=== PATIENT | male | born 1975 | race Caucasian/White ===

== ENCOUNTER 2023-12-08 19:39 | Inpatient (IN) | payer OTHER, SELFPAY ==
[2023-12-08 15:58] VITALS: BMI 32.2
[2023-12-08 16:00] VITALS: BP 177/102
[2023-12-08 16:24] LABS: % Basophils 0.7 % (0-2); % Eosinophils 0.4 % (0-6); % Immature Granulocytes 2.2 % (0-0.5); % Lymphocytes 7.5 % (20.5-51.1); % Monocytes 10.8 % (1.7-9.3); % Neutrophils 78.4 % (42.2-75.2); Absolute Basophils 0.1 10^3/uL (0-0.2); Absolute Eosinophils 0.1 10^3/uL (0-0.7); Absolute Immature Granulocytes 0.4 10^3/uL (0-0.05); Absolute Lymphocytes 1.4 10^3/uL (1.2-3.4); Absolute Neutrophils 14.3 10^3/uL (1.4-6.5); Hematocrit 32.5 % (39.0-52.0); Hemoglobin 12.2 g/dL (13.0-18.0); Mean Corp Hgb Conc. 37.5 g/dL (33.0-37.0); Mean Corpuscular Volume 85.3 fL (80.0-94.0); Mean Platelet Volume 8.3 fL (7.4-10.4); Nucleated Red Blood Cells % 0 % (-); Platelet Count 435 10^3/uL (130-400); Red Blood Cell Count 3.81 10^6/uL (4.70-6.10); Red Cell Dist. Width 12.4 % (11.5-14.5); White Blood Cell Count 18.3 10^3/uL (4.8-10.8)
[2023-12-08 16:37] LABS: Lactic Acid 0.8 mmol/L (0.7-2.0)
[2023-12-08 16:46] LABS: ALT (SGPT) 19 U/L (0-50); AST (SGOT) 22 U/L (17-59); Albumin 3.5 g/dl (3.5-5.0); Alkaline Phosphatase 87 U/L (38-126); Blood Urea Nitrogen 9 mg/dl (9-20); Calcium 9.1 mg/dl (8.4-10.2); Carbon Dioxide 24 mmol/L (22-30); Chloride 84 mmol/L (98-107); Glucose 122 mg/dl (70-99); Potassium 2.7 mmol/L (3.5-5.1); Sodium 124 mmol/L (135-145); Total Bilirubin 1.3 mg/dl (0.2-1.3); Total Protein 6.8 g/dl (6.3-8.2); eGFR > 60.00
--- NOTE | 2023-12-08 17:05 | ED.GENMED ---
History of Present Illness
General
Chief Complaint: Fall
Source: patient
Exam Limitations: none
Time Seen by Provider: 12/08/23 16:55
Travel History
Have you had any contact with someone who has COVID-19?: No
Do you have any symptoms of coronavirus? Fever > 100 degrees, chills, cough, shortness of breath, sore throat, loss of taste or smell, muscle aches, or headache?: No
History of Present Illness
History of Present Illness:
48-year-old male has had weeks of intermittent fevers. Also developed some back pain weeks ago. Back pain is actually improved. He did have a syncopal episode last week after standing. No prodromal symptoms. Today primarily here for left calf
pain and swelling and evaluation of this recent syncopal event. No abdominal pain no urinary symptoms. No bowel or bladder issues. No lower extremity weakness numbness or tingling
Past History
Past History
ED Past Medical History: None
ED Past Surgical History: Orthopedic
Review of Systems
Review of Systems
All Other Systems: Not applicable
Constitutional: Reports fever
Respiratory: Reports no symptoms
Cardiac: Reports no symptoms
ABD/GI: Denies abdominal pain
Phy Exam
Physical Exam
Physical Exam:
GENERAL: Alert and oriented in no apparent distress
EYE: Orbits normal. Mild ecchymosis under the left periorbital area
NECK: Supple, nontender
ENT: Pharynx without erythema
CARDIAC: Regular rate and rhythm without any obvious murmurs.
LUNGS: Clear breath sounds,normal
ABDOMEN: Soft, without focal tenderness or distention
NEUROLOGICAL: Alert and oriented , grossly non-focal. Good lower extremity strength.
SKIN: Warm and dry, no rash or lesion, no discoloration, skin intact.
MUSCULOSKELETAL: Mild swelling to the left calf. No cord. Minimal tenderness.
PSYCH: Normal and appropriate interaction.
Course
Orders/Labs/Results
Orders:
Orders
12/08/23 16:05
EKG [Electrocardiogram (*1)] Urgent
Reason for Study: Syncope
EKG- Treatment ONCE
12/08/23 16:07
CT Head W/o Iv Contrast Urgent
Comment:
Reason For Exam: fall today, headstrike, mild confusion and N/V
12/08/23 16:08
Legs, left US [US Periph Venous LOWER Ext LT] Urgent
Comment:
Reason For Exam: left calf pain and swelling for past 2 days
12/08/23 16:17
C-Reactive Protein Urgent
Comment: ADD ON
Complete Blood Count/With Diff Urgent
Comprehensive Metabolic Panel Urgent
Erythrocyte Sed Rate Urgent
Comment: ADD ON
Lactate Level [Lactic Acid] Urgent
Magnesium Urgent
Comment: ADD ON
Blood Culture Urgent
KYA Source: Blood/Venous
Specimen Description:
12/08/23 16:58
Cardiac Monitoring- Treatment ONCE
IV Insert/Care/Rem.- Treatment PRN
12/08/23 17:16
Potassium Chloride 10% Elixir [KCl Elixir] 40 meq PO NOW STA
12/08/23 17:17
CT Abd/pel Without Iv Or Oral Urgent
Comment:
Reason For Exam: back pain. fever
12/08/23 17:19
Add On- LAB Urgent
Tests Added?: Magnesium
12/08/23 17:31
CXR2 [CR Chest - 2 Views ] Urgent
Comment:
Reason For Exam: fever cough
12/08/23 17:42
COVID-19 Antigen Urgent
Source: Nasal Swab
Lactic Acid Q4H
Comment: CANCEL 2nd LACTIC ACID IF 1st LACTIC ACID IS LESS THAN 2
Blood Culture Urgent
KYA Source: Blood/Venous
Specimen Description:
Influenza A+B Rapid Molecular Urgent
KYA Source: Nasal Swab
Specimen Description:
12/08/23 17:58
Urinalysis Reflex To Culture Urgent
Date Specimen was Collected: 12/08/23
Time Specimen was Collected: 17:51
Urine Microscopic Reflex Cult Urgent
12/08/23 18:29
Piperacillin/Tazo 4.5 Gram [Zosyn] 4.5 gram in 100 ml IV NOW
12/08/23 18:32
Add On- LAB Urgent
Tests Added?: crp/esr
12/08/23 18:55
PTT Urgent
Comment: Obtain baseline before beginning heparin infusion if not already collected
Heparin 7,700 units IV NOW STA
Nursing to Place Non Medication Order As Directed
Physician Order: PTT 6 hours after initial start of Heparin infusion
12/08/23 19:00
Heparin [id number] Units/250 ml 25,000 units in 250 ml IV PER PROTOCOL
Weight to be used for heparin protocol in kilograms (kg):: 96
Protocol:: DVT/PE
PTT Goal Range to be used:: PTT 73 to 111 seconds
Order type:: Initial
INITIAL Infusion Dose (UNITS/KG/hr) & then follow protocol:: 18 units/kg/hr
Infusion Dose in UNITS/hr & then follow protocol (UNITS/hr):: 1,700
INFUSION RATE in mL/hr & then follow protocol (mL/hr):: 17
For DVT/PE algorithm, re-bolus for low PTT?: Yes
PTT less than or equal to 64 seconds:: Re-bolus 80 units/kg (max 10,000units). Increase by 400 units/hr
(+ 4mL/hr)
PTT 64.1 to 72.9 seconds:: Re-bolus 40 units/kg (max 5,000 units). Increase by 200 units/hr
(+ 2mL/hr)
PTT 73 to 111 seconds:: Target Range. No change in rate.
PTT 111.1 to 130.9 seconds:: Decrease rate by 200 units/hr (- 2 mL/hr)
PTT 131 to 199.9 seconds:: HOLD for 1 hr. Then decrease by 300 units/hr (- 3mL/hr)
PTT greater than or equal to 200 seconds:: HOLD for 2 hrs & Notify Provider. Then decrease by 400 units/hr
(- 4mL/hr)
Lab follow-up:: Each change, PTT q6h until 2 consecutive are therapeutic. Then
PTT daily.
12/08/23 19:01
Admit/Transfer Patient As Directed
Co-Sign Provider:
Level of Care: Inpatient admission
Assign to:: Telemetry
Physician / Group: [email or web address]
Diagnosis: osteomyelitis, dvt
Reason for Telemetry: Arrhythmia
Date to Stop Telemetry: 12/11/23
Time to Stop Telemetry: 11:00
Reason for Hospitalization: osteomyelitis, dvt
Expected length of stay greater than two midnights?: Yes
ELOS- Estimated Length of Stay in days: 2
I certify the patient meets the requirements for IP care: Yes
12/08/23 19:02
Code Status As Directed
Resuscitation Status: Full Code
12/08/23 19:04
Magnesium Sulfate 1 grams 0.9% Sodium Chloride 100 ml [Nss] 100 ml IV NOW
12/08/23 19:05
Urine Osmolality Random [Osmolality, Random Urine] Urgent
Urine Sodium Urgent
12/08/23 19:07
3% Sodium Chloride 250 ml [Sodium Chloride 3%] 250 ml IV ONCE
HydrALAZINE [Apresoline] 5 mg IV Q6HPRN PRN
12/08/23 19:12
Potassium Chloride [KCl] 20 meq 0.9% Sodium Chloride 150 ml [Nss] 150 ml IV NOW
12/08/23 19:13
Vancomycin [Vancocin] 2,000 mg 0.9% Sodium Chloride 500 ml [Nss] 500 ml IV NOW
12/08/23 19:15
Heparin 7,700 units IV PRN PRN
12/08/23 19:16
Heparin 3,800 units IV PRN PRN
12/11/23 11:00
DC Protocol for Telemetry ONCE
Abnormal Lab Results
12/08/23 12/08/23
16:17 17:58
WBC 18.3 H 10^3/uL
(4.8-10.8)
RBC 3.81 L 10^6/uL
(4.70-6.10)
Hgb 12.2 L g/dL
(13.0-18.0)
Hct 32.5 L %
(39.0-52.0)
MCH 32.0 H pg
(27.0-31.0)
MCHC 37.5 H g/dL
(33.0-37.0)
Plt Count 435 H 10^3/uL
(130-400)
Abs Immat Gran (auto) 0.4 H 10^3/uL
(0-0.05)
Absolute Neuts (auto) 14.3 H 10^3/uL
(1.4-6.5)
Absolute Monos (auto) 2.0 H 10^3/uL
(0.1-0.6)
Immature Gran % 2.2 H %
(0-0.5)
Neutrophils % 78.4 H %
(42.2-75.2)
Lymphocytes % 7.5 L %
(20.5-51.1)
Monocytes % 10.8 H %
(1.7-9.3)
ESR 84 H mm/hour
(0-20)
Sodium 124 L mmol/L
(135-145)
Potassium 2.7 L* mmol/L
(3.5-5.1)
Chloride 84 L mmol/L
(98-107)
Creatinine 0.6 L mg/dL
(0.7-1.3)
Glucose 122 H mg/dl
(70-99)
Magnesium 1.5 L mg/dl
(1.6-2.3)
C-Reactive Protein 246.60 H mg/L
(0.0-10.00)
Urine Ketones 3+ A
(Negative)
Ur Occult Blood Reflex 1+ A
(Negative)
Urine RBC 3-6 A /HPF
(0-2)
12/08/23 16:17
12/08/23 16:17
Vital Signs
Initial and Last Documented VS:
Initial Vital Signs
Temp Pulse Resp BP Pulse Ox
99.9 F 98 18 177/102 96
12/08/23 16:00 12/08/23 16:00 12/08/23 16:00 12/08/23 16:00 12/08/23 16:00
Last Documented Vital Signs
Temp Pulse Resp BP Pulse Ox
99.9 F 87 20 146/80 96
12/08/23 16:00 12/08/23 21:45 12/08/23 21:45 12/08/23 21:00 12/08/23 21:45
*Radiology
Radiology exam reviewed: preliminary read by ED provider (Negative x-ray) and radiology read reviewed (Negative head CT. Discitis osteomyelitis to L5-S1.)
*Pulse Oximetry
Patient hypoxic: no
*EKG
Interpreted by ED Provider?: Yes
Interpretation: abnormal
Comparison EKG: no comparison EKG present
Heart Rate: 91
Rate: normal
Rhythm: sinus
Kamas: normal axis
Interval: long QT
QRS Pattern: normal QRS
Ischemia: non-specific ST changes
*Critical Care Note
Total Time (30-74mins, 75-104mins- exclusive of procedures): Not Applicable
Update Note
Update Note:
Patient was not in the room on initial arrival. Apparently was sent to ultrasound.
Discussed with hospitalist. After CT report discussed with neurosurgery. Okay to keep at [facility]. Neurologically intact. MRI can wait till the morning. Family updated. Will heparinize for DVT.
Complicated issues including hypokalemia, hypomagnesemia, hyponatremia. May be related to water intake. Leukocytosis back pain related to discitis/osteomyelitis. Neurologically intact. DVT to the left gastroc. Heparin for ability to turn off.
ED Attending Note
-
Portions of this chart may have been created with voice recognition software.� Occasional wrong word or��sound alike� substitutions may have occurred due to the inherent limitations of voice recognition software.
Discharge Plan
Departure
Patient Disposition: Admit
Date of Disposition: 12/08/23
Time of Disposition: 18:12
Presentation/result/management discussed w/ accepting MD/DO: Hospitalist
Discharge Problem:
Hyponatremia, Hypokalemia, Left lower extremity DVT, Recent syncope, Long QT interval, Leukocytosis/recent fevers
Interventions
Interventions:
*Risk Screen - Suicide Last Done: 12/08/23 16:00
*General Assessment Last Done: 12/08/23 16:00
*Neglect/Abuse Screening Last Done: 12/08/23 16:00
*ED COVID-19 Vaccine History Last Done: 12/08/23 20:46
ED-Musculoskeletal Assessment Last Done: 12/08/23 17:00
ED- Neurological Assessment Last Done: 12/08/23 17:00
ED-Skin Assessment Last Done: 12/08/23 17:00
[2023-12-08] MEDS: KCL ELIXIR 40 MEQ PO (17:36)
[2023-12-08 17:53] LABS: Magnesium 1.5 mg/dl (1.6-2.3)
[2023-12-08 18:03] LABS: Lactic Acid 0.9 mmol/L (0.7-2.0)
[2023-12-08 18:17] LABS: Urine Albumin Negative (Neg - Trace); Urine Bilirubin Negative (Negative); Urine Character Clear (Clear); Urine Color Yellow; Urine Glucose Negative (Negative); Urine Ketone 3+ (Negative); Urine Leukocyte Negative (Negative); Urine Nitrite Negative (Negative); Urine Occult Blood 1+ (Negative); Urine Urobilinogen Negative (Neg - 1+)
[2023-12-08 18:18] LABS: COVID-19 Antigen Negative (Negative)
[2023-12-08 18:28] LABS: Urine Squamous Cell 0-2 /LPF (Few); Urine White Cell None Seen /HPF (0-5)
[2023-12-08] MEDS: ZOSYN 100 IV (18:54)
[2023-12-08 18:56] LABS: Erythrocyte Sed Rate 84 mm/hour (0-20)
[2023-12-08 19:03] VITALS: BP 151/87
--- NOTE | 2023-12-08 19:09 | HPS.HSE ---
Addendum entered and electronically signed by Celi Muñoz MD 12/08/23 22:25:
ID recommended IR consult for aspiration/culture.
Original Note:
Family Physician
-
Family Physician: Latisha Barnhart MD
Chief Complaint
-
left leg pain
History of Present Illness
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 Patient has been having poor decreased intake and fatigue with 15 pound weight loss over the past 1 to 2 months. A week ago
he had an episode of vomiting associated with passing out. He denies any further dizziness or vomiting since then. He denies any diarrhea and slightly constipated with last bowel movement 2 days ago. Denies any abdominal pain.
He developed pain and cramping in his left lower extremity over the past 2 to 3 days. He denies any history of blood clots. He denies any recent surgeries, COVID infection, long trips. Denies any family history of blood clots. Denies any chest
pain or shortness of breath.
Over the past week he has had pain in his lower back. He denies any weakness of his lower extremities or numbness and tingling. He has been having fevers and chills up to 100.4. No history of drugs or IV drug use.
Very rarely drinks alcohol. No smoking history.
No family history.
Medical History
Past Medical History
Past Medical History: Reports None
Past Surgical History: Reports None
Social History
Tobacco: Non-smoker
Alcohol: Occasional
Drug: None
Family History
Family History: Not pertinent
Allergies / Home Medications
Allergies reflects when Allergies were last updated in [facility].
Home Medications with original date entered in [facility]
Allergy/Medication List:
Allergies
Allergy/AdvReac Type Severity Reaction Status Date / Time
No Known Allergies Allergy Unverified 12/08/23 16:04
Home Medications
cholecalciferol (vitamin D3) 25 mcg (1,000 unit) tablet (Vitamin D3) 25 mcg PO DAILY PRN supplement 12/08/23
magnesium 250 mg tablet 250 mg PO DAILY PRN supplement 12/08/23
Review of Systems
-
History Source: Patient
A 12 point ROS was completed and negative except as noted: Yes
Constitutional: Reports No Symptoms
EENT: Reports No Symptoms
Respiratory: Reports No Symptoms
Cardiac: Reports See HPI
Abdomen/GI: Reports See HPI
: Reports No Symptoms
Musculoskeletal: Reports See HPI
Skin: Reports No Symptoms
Neurological: Reports No Symptoms
Endocrine: Reports No Symptoms
Hematologic/Lymphatic: Reports No Symptoms
Psych: Reports No Symptoms
Physical Exam
Vital Signs
Vital Signs
Temp Pulse Resp BP Pulse Ox
99.9 F 90 26 151/87 98
12/08/23 16:00 12/08/23 19:03 12/08/23 19:03 12/08/23 19:03 12/08/23 19:03
Physical Exam
General: Well Developed, Well Nourished and No Apparent Distress
HEENT: NormoCephalic, Moist mucous membranes and Atraumatic
Respiratory: Clear
Cardiac: S1/S2 and Regular Rhythm; No Murmur or Rub
GI: Soft, Non Tender, Non Distended and Normal Bowel Sounds; No Organomegaly
Rectal: Deferred by Provider
Musculoskeletal: No Clubbing, No Cyanosis, No Edema and Other (tender lumbar spine center )
Skin: No Rash
Neuro: Nonfocal/grossly intact
Laboratory Results
-
12/08/23 16:17
12/08/23 16:17
Laboratory Results
Lactic Acid 0.9 mmol/L (0.7-2.0) 12/08/23 17:42
Total Bilirubin 1.3 mg/dl (0.2-1.3) 12/08/23 16:17
AST 22 U/L (17-59) 12/08/23 16:17
ALT 19 U/L (0-50) 12/08/23 16:17
Alkaline Phosphatase 87 U/L (38-126) 12/08/23 16:17
Data Reviewed
-
Lab Data: Labs Reviewed by me
Old Records: Reviewed
Impression/Plan
-
IMPRESSION:
PLAN:
# Sepsis (fever at home, leukocytosis ) secondary to osteomyelitis/discitis of L5-S1 with paravertebral phlegmon/abscess
-No neurological symptoms
-Check blood cultures
-Vancomycin/cefepime
-ER discussed with neurosurgery who states that patient can stay here
-ID consulted
# Unprovoked left lower extremity DVT gastrocnemius veins
-Heparin drip
# Syncopal episode likely due to hypokalemia/prolonged QTc/hyponatremia
# Prolonged QTc secondary to hypokalemia
# Hypomagnesemia
-QTc of 573
-EKG shows repolarization abnormalities, U waves likely due to hypokalemia
-Potassium repletion
-Magnesium repletion
-Recheck EKG in a.m, consider cardiology if no improvement in EKG with correction of electrolytes
#Hyponatremia possibly due to poor p.o. intake
-no significant volume losses/hypotension to warrant IV fluids
-Check urine sodium, osmolality
-Hypertonic saline 20 cc/hr
-recheck sodium after 6 hours
# Hypertensive urgency
-As needed hydralazine
Full code
DVT prophylaxis�heparin drip
Regular diet
[2023-12-08] MEDS: HEPARIN 7700 UNITS IV (19:17)
[2023-12-08] MEDS: HEPARIN 25000 UNITS/250 ML IV (19:23)
[2023-12-08] MEDS: SODIUM CHLORIDE 3% 250 IV (19:40)
[2023-12-08] MEDS: VANCOCIN 540 MG IV (19:49)
[2023-12-08] MEDS: KCL 160 MEQ IV (19:55)
[2023-12-08 20:00] VITALS: BP 154/80
[2023-12-08 21:00] VITALS: BP 146/80
[2023-12-08 22:00] VITALS: BP 142/78
[2023-12-08] MEDS: MAGNESIUM SULFATE 102 GRAMS IV (22:06)
[2023-12-08 22:51] LABS: APTT 69.8 Sec (23.4-35.0)
[2023-12-08 23:00] VITALS: BP 158/82
[2023-12-09] VITALS (8 sets, daily range): BP systolic 119–167; BP diastolic 67–86; BMI 31.3
[2023-12-09] MEDS: MAXIPIME 2000 MG IV ×2 (01:05→14:11)
[2023-12-09] MEDS: TYLENOL 650 MG PO ×3 (01:05→19:56)
[2023-12-09] MEDS: STERILE WATER FOR INJECTION 10 ML IV ×2 (01:06→14:12)
[2023-12-09 01:28] LABS: APTT 48.7 Sec (23.4-35.0)
[2023-12-09 01:30] LABS: Blood Urea Nitrogen 9 mg/dl (9-20); Calcium 8.4 mg/dl (8.4-10.2); Carbon Dioxide 25 mmol/L (22-30); Chloride 89 mmol/L (98-107); Estimated Creatinine Clearance > 125 ml/min; Glucose 114 mg/dl (70-99); Potassium 2.9 mmol/L (3.5-5.1); Sodium 123 mmol/L (135-145); eGFR > 60.00
--- NOTE | 2023-12-09 01:33 | PTCARENOTE ---
Received patient from ED via stretcher. Pt AAOX3. NSR on compliance monitor. Heparin gtt infusing at 17ml/hr. Pt with oral temp: 102.1 Pt medicated with Tylenol PO. See NOV. Call hewitt within reach. Plan of care ongoing.
[2023-12-09] MEDS: HEPARIN 7700 UNITS IV (01:39)
[2023-12-09] MEDS: KCL 40 MEQ PO ×3 (04:18→15:23)
[2023-12-09 04:43] LABS: Urine Sodium 16 mmol/L (30-90)
[2023-12-09 05:45] LABS: Osmolality Urine 199 mOsm/kg (300-900)
[2023-12-09 07:32] LABS: % Basophils 0.6 % (0-2); % Eosinophils 0.6 % (0-6); % Immature Granulocytes 2.1 % (0-0.5); % Lymphocytes 9.1 % (20.5-51.1); % Monocytes 13.5 % (1.7-9.3); % Neutrophils 74.1 % (42.2-75.2); Absolute Basophils 0.1 10^3/uL (0-0.2); Absolute Eosinophils 0.1 10^3/uL (0-0.7); Absolute Immature Granulocytes 0.4 10^3/uL (0-0.05); Absolute Lymphocytes 1.5 10^3/uL (1.2-3.4); Absolute Monocytes 2.3 10^3/uL (0.1-0.6); Absolute Neutrophils 12.6 10^3/uL (1.4-6.5); Hematocrit 32.4 % (39.0-52.0); Hemoglobin 11.8 g/dL (13.0-18.0); Mean Corp Hgb Conc. 36.4 g/dL (33.0-37.0); Mean Corpuscular Hgb 31.8 pg (27.0-31.0); Mean Corpuscular Volume 87.3 fL (80.0-94.0); Mean Platelet Volume 8.8 fL (7.4-10.4); Nucleated Red Blood Cells % 0 % (-); Platelet Count 423 10^3/uL (130-400); Red Blood Cell Count 3.71 10^6/uL (4.70-6.10); Red Cell Dist. Width 12.4 % (11.5-14.5)
[2023-12-09 07:46] LABS: ALT (SGPT) 21 U/L (0-50); AST (SGOT) 27 U/L (17-59); Albumin 2.9 g/dl (3.5-5.0); Alkaline Phosphatase 89 U/L (38-126); Blood Urea Nitrogen 9 mg/dl (9-20); Calcium 8.3 mg/dl (8.4-10.2); Carbon Dioxide 29 mmol/L (22-30); Chloride 89 mmol/L (98-107); Estimated Creatinine Clearance > 125 ml/min; Glucose 128 mg/dl (70-99); Sodium 128 mmol/L (135-145); Total Bilirubin 0.8 mg/dl (0.2-1.3); Total Protein 5.9 g/dl (6.3-8.2); eGFR > 60.00
[2023-12-09 08:32] LABS: APTT 76.3 Sec (23.4-35.0)
[2023-12-09] MEDS: HEPARIN 25000 UNITS/250 ML IV ×2 (08:33→19:56)
--- NOTE | 2023-12-09 09:09 | W.PN.HOSP.TC ---
Today's Communication/Plan
-
see bold
Assessment / Plan
Assessment / Plan
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
ago he had an episode of vomiting associated with passing out.� He denies any further dizziness or vomiting since then.� He denies any diarrhea and slightly constipated with last bowel movement 2 days ago.� Denies any abdominal pain. He developed
pain and cramping in his left lower extremity over the past 2 to 3 days.� He denies any history of blood clots.� He denies any recent surgeries, COVID infection, long trips.� Denies any family history of blood clots.� Denies any chest pain or
shortness of breath. Over the past week he has had pain in his lower back.� He denies any weakness of his lower extremities or numbness and tingling.� He has been having fevers and chills up to 100.4.� No history of drugs or IV drug use. Very rarely
drinks alcohol.� No smoking history. No family history. Patient is a chiropractor.
A/P:
#Sepsis (fever at home, leukocytosis )
#Acute osteomyelitis/discitis of L5-S1 with paravertebral phlegmon/abscess
#Staph aureus bacteremia
Appreciate ID input, continue vancomycin and cefepime, follow-up on cultures
12/08 TTE negative for vegetations
IR consulted for possible aspiration
May need lumbar spine MRI�defer timing to ID
12/07 blood cultures growing Staph aureus, repeat blood cultures until clearance
Trend fever and white count
#Unprovoked left lower extremity DVT gastrocnemius veins
Heparin drip
#Syncopal episode likely due to hypokalemia/prolonged QTc/hyponatremia
#Prolonged QTc secondary to hypokalemia
#Hypomagnesemia
QTc normal today at 383, was 573 upon admission
Potassium still low at 3.0, continue to replete
Magnesium now normal 1.9
#Hyponatremia possibly due to poor p.o. intake
Likely due to excess ADH secretion in the setting of pain
Status post hypertonic saline
Sodium improved at 128, was 123
Continue fluid restriction, trend sodium
# Hypertensive urgency
Likely due to pain
Blood pressure 140/75, improved from 177/102
Continue as needed hydralazine
#Insomnia
Start melatonin and Benadryl at bedtime
DVT prophylaxis�heparin drip
Full code
Total time spent to see the patient on the floor, examine the patient, review data and lab results, discuss treatment plan with patient, nursing staff around 51 minutes.
Physical Exam
General: No acute distress
HEENT: Normocephalic, Atraumatic, EOMI, MMM
Respiratory: Clear to Auscultation bilaterally
Cardiac: Normal S1/S2, Regular Rate and Rhythm
GI: Soft, Nontender, Nondistended, Normal Bowel Sounds
Extremities: No Clubbing, Cyanosis, or Edema
Neuro: Nonfocal/Grossly Intact
Psych: Calm, Cooperative
Derm: No Visible lesions
Anticipated Discharge: > 48 hours
Subjective/Interval History
-
Date of Service: December 09, 2023
Patient denies fever. Reports chills. He reports that his back pain is 6 out of 10 in intensity. No nausea, no vomiting. No chest pain, no shortness of breath.
Objective Data
-
Labs:
Laboratory Results
12/08/23 12/09/23 12/09/23
19:11 01:06 06:36
WBC 17.0 H
Hgb 11.8 L
Hct 32.4 L
Plt Count 423 H
APTT 69.8 H 48.7 H
Sodium 123 L 128 L
Potassium 2.9 L 3.0 L
Chloride 89 L 89 L
Carbon Dioxide 25 29
BUN 9 9
Creatinine 0.6 L 0.6 L
Glucose 114 H 128 H
Calcium 8.4 8.3 L
Total Bilirubin 0.8
AST 27
ALT 21
Alkaline Phosphatase 89
12/09/23
08:01
WBC
Hgb
Hct
Plt Count
APTT 76.3 H
Sodium
Potassium
Chloride
Carbon Dioxide
BUN
Creatinine
Glucose
Calcium
Total Bilirubin
AST
ALT
Alkaline Phosphatase
Vital Signs:
Vital Signs
Temp Pulse Resp BP Pulse Ox
100 F 84 18 142/83 97
12/09/23 07:10 12/09/23 07:10 12/09/23 07:10 12/09/23 07:10 12/09/23 07:10
I&O
12/08/23 12/09/23 12/10/23
06:59 06:59 06:59
Intake Total 766 / 766
Output Total 560 / 560
Balance 206 / 206
--- NOTE | 2023-12-09 09:12 | CON.ID ---
Consultation
-
Date/Time Consultation Requested: 12/09/23 00:37
Date/Time Consultation Performed: 12/09/23 9:13
Requesting Provider: Dr Muñoz
Performing Provider: Dr Mark
Reason for Consultation: Sepsis (fever at home, leukocytosis ) secondary to osteomyelitis/discitis o
Chief Complaint / Past History
Chief Complaint
left leg pain
History of Present Illness
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 Back pain began
about 1 month ago along with subjective fevers/chills, improved with adjustments. No diarrhea or significant constipation, no abdominal pain. Reports a single episode of vomiting associated with syncope with head strike. Then 2-3 days developed
cramping in the L lower extremity. No history of blood clots, surgeries or recent trips. No chest pain or shortness of breath. No history of IVDU. Does not practice acupuncture and no needle sticks. Doesnt have dental insurance and last dental
evaluation was years ago. No gum swelling tenderness or tender teeth. Had a [facility] within the last year [facility] that [facility]. Does have a known foreign body in the L foot
Since arrival here tmax was 102.1 orally, BP stable, wbc initailly 18.3 now 17.0, hgb 11.8, plt 423, L shift present on arrival, eos were present, ESR 84, cr 0.6, t bili 0.8, ast 37, alt 21, alk phos 89, covid ag neg, 12/07 CT a/p without contrast:
suspicious for OM/discitis at the L5-S1 level - possible paravetebral phlegmon or developing abscess, neoplasia on the differential, DVT below the knee on venous US, one of two blood cultures with GPCs in clusters
Past History
Additional Past Medical History:
as per hpi
Past Surgical History: None
Allergy History:
No Known Allergies Allergy (Unverified 12/08/23 16:04)
Medications Reviewed: Yes
Social History
Tobacco: Non-Smoker
Alcohol: Occasional
Drug: None
Family History
Family History: Not Pertinent
Review of Systems
Review of Systems
General: Negative Fever or Chills
All systems: All other systems were reviewed and were negative
Vital Signs
Temp Pulse Resp BP Pulse Ox
100 F 84 18 142/83 97
12/09/23 07:10 12/09/23 07:10 12/09/23 07:10 12/09/23 07:10 12/09/23 07:10
Physical Exam
Physical Exam
Constitutional: No Acute Distress
Cardiovascular: Regular Rate and S1/S2; Negative Murmur or Rub
Pulmonary: Clear and Symmetric; Negative Wheezes, Rales or Rhonchi
Gastrointestinal: Soft, Non Tender, Non Distended and Normal Bowel Sounds
Extremities: Calf Swelling (minimal); Negative Splinter Hemorrhage (no osler or janway lesions)
Musculoskeletal: Spinal Tenderness (lumbar spine only)
Skin: Warm and Dry; Negative Rash or Jaundice
Neurological: Awake and Alert
Lab / Diagnostic Study Results
12/09/23 06:36
12/09/23 06:36
Abs Immat Gran (auto) 0.4 10^3/uL (0-0.05) H 12/09/23 06:36
Absolute Neuts (auto) 12.6 10^3/uL (1.4-6.5) H 12/09/23 06:36
Absolute Lymphs (auto) 1.5 10^3/uL (1.2-3.4) 12/09/23 06:36
Absolute Monos (auto) 2.3 10^3/uL (0.1-0.6) H 12/09/23 06:36
Absolute Basos (auto) 0.1 10^3/uL (0-0.2) 12/09/23 06:36
Immature Gran % 2.1 % (0-0.5) H 12/09/23 06:36
Neutrophils % 74.1 % (42.2-75.2) 12/09/23 06:36
Lymphocytes % 9.1 % (20.5-51.1) L 12/09/23 06:36
Monocytes % 13.5 % (1.7-9.3) H 12/09/23 06:36
Eosinophils % 0.6 % (0-6) 12/09/23 06:36
Basophils % 0.6 % (0-2) 12/09/23 06:36
ESR 84 mm/hour (0-20) H 12/08/23 16:17
Lactic Acid Cancelled 12/08/23 21:00
C-Reactive Protein 246.60 mg/L (0.0-10.00) H 12/08/23 16:17
Ur Squamous Epith Cells 0-2 /LPF (Few) 12/08/23 17:58
Microbiology Results
Micro:
12/08/23 16:17 Blood Culture - Preliminary
Blood/Venous Positive culture in progress
Gram Stain - Final
12/08/23 17:42 Influenza Types A & B (TARIQ) - Final
Nasal Swab Negative for Influenza A & B, NAAT
Negative results must be combined with clinical observations
and patient history.
Nucleic Acid Amplification test (NAAT)performed on the
[employer] NOW platform.
12/08/23 17:42 Blood Culture - Pending
Blood/Venous
Assessment / Plan
Probable L5-S1 Discitis
Gram positive bacteremia
- gpcs in clusters in 1 of two sets of blood cultures
- repeat blood cultures x2
- IR consulted for aspiration/culture of the affected area
- panellipse
- echo
- eventual MRI lumbar spine - would wait a few days before obtaining
- Xray of the L foot to assess reported foreign body (asymptomatic) may need MRI
- continue vanc/cefepime
- follow clinically
Hyperglycemia
- check A1c
Care Review
Plan reviewed with: Physician (Dr Simms, Dr Porter - MRI)
--- NOTE | 2023-12-09 09:44 | PHA.VAN.IN ---
Assessment
- Assessment
Renal Function: Appears similar to baseline
Concomitant Antimicrobials: cefepime
AUC Dosing Plan
- Dosing Variables
Dosing Weight (kg): 93
Dosing CrCl (ml/min): 125
Vd coefficient (L/kg): 0.7
- Empiric Dosing
Initial / Loading Dose: 2000mg - 12/07 19:49
Maintenance Regimen: Vanc 1500mg Q12H starting at 1800 - give 1g now to maintain levels
Estimated AUC (mcg*h/mL): 461
Estimated Peak (mcg*h/mL): 31.7
Estimated Trough (mcg/ml): 10.2
Estimated Half Life (H): 6.4
- Monitoring
No levels ordered at this time: consider levels in next few days
Pharmacokinetics Vancomycin I
- -
Patient Age: 48
Patient Sex: Male
Vancomycin Day #: 1
Indication: Bone And Joint
Requesting Provider: Dr. Muñoz
Pertinent Antimicrobial Allergies:
NKDA
Height / Weight:
Height 5 ft 8 in
Actual Weight 93.242 kg
Pertinent Past Medical History: BMI ~31
- Vital Signs / Lab Results
Temp Pulse Resp BP Pulse Ox
100 F 84 18 142/83 97
12/09/23 07:10 12/09/23 07:10 12/09/23 07:10 12/09/23 07:10 12/09/23 07:10
Lab Results - Hematology
12/08/23 12/09/23
16:17 06:36
WBC 18.3 H 17.0 H
Lab Results - Chemistry
12/08/23 12/09/23 12/09/23
16:17 01:06 06:36
BUN 9 9 9
Creatinine 0.6 L 0.6 L 0.6 L
Estimated Creat Clear > 125 > 125
Albumin 3.5 2.9 L
03/12/24 03/12/24 03/12/24
16:17 17:42 21:00
Lactic Acid 0.8 0.9 Cancelled
Lab Results - Urine
12/08/23
17:58
Urine Nitrite (Reflex) Negative
Leukocyte Esterase Rfl Negative
Urine WBC (Reflex) None seen
Ur Squamous Epith Cells 0-2
Microbiology Results
12/08/23 16:17 Blood Culture - Preliminary
Blood/Venous Positive culture in progress
Gram Stain - Final
12/08/23 17:42 Influenza Types A & B (TARIQ) - Final
Nasal Swab Negative for Influenza A & B, NAAT
Negative results must be combined with clinical observations
and patient history.
Nucleic Acid Amplification test (NAAT)performed on the
[employer] platform.
[2023-12-09 09:47] LABS: Magnesium 1.9 mg/dl (1.6-2.3)
[2023-12-09] MEDS: VANCOCIN 200 IV (10:25)
[2023-12-09] MEDS: VISBIOME 2 CAP PO (10:31)
[2023-12-09] MEDS: ROXICODONE 10 MG PO (12:57)
--- NOTE | 2023-12-09 13:42 | PTCARENOTE ---
Patient maintained on heparin gtt for left lower leg DVT. PTT this morning was within therapeutic range so heparin without changes at 2100 units/hour. PTT redrawn at 1330 - pending results. Potassium 3.0 today. Given 40 meq Kdur and will receive
another dose this evening. Patient with preliminary positive blood cultures. Additional set of blood cultures drawn. aware. ID following patient. Patient went for orthopantogram, left leg xray and echocardiogram today. IV antibiotics as ordered.
Reviewed plan of care with patient and he verbalizes understanding plan at this time.
--- NOTE | 2023-12-09 14:18 | CM ---
Alert awake oriented patient who lives with his Elayne in one story home with 1 step to enter and bed and bathroom on first floor. He is independent in driving and in all activities of daily living.He uses a CPAP from [employer].He will probably
need home IV anabiotic infusion. Pt agreed to use [facility] if needed.
No VN/SNF history
Pharmacy [facility]
PCP DR Barnhart
PLAN Home probably need home IV anabiotic infusion
[2023-12-09 14:43] LABS: APTT 65.1 Sec (23.4-35.0)
[2023-12-09] MEDS: HEPARIN 3800 UNITS IV (15:22)
[2023-12-09] MEDS: VANCOCIN 300 ML IV (17:29)
[2023-12-09] MEDS: VANCOCIN 300 MG IV (17:29)
--- NOTE | 2023-12-09 17:59 | CON.NS ---
Consultation
-
Date/Time Consultation Performed: 18:00,
Performing Provider: Kerri
Chief Complaint
History of Present Illness
This is a 48-year-old gentleman that presented with feeling of malaise for the past month. He reportedly had decreased intake, and fatigue, with 15 pound weight loss. He had an episode of vomiting, 1 week prior, with syncope. He also developed
pain and cramping in his left lower extremity over the last several days, prompting him to present. He also reported pain that started in his back approximately 1 week prior. He denies any numbness, tingling, weakness of the lower extremities. He
denies any bowel or bladder changes. He also had fevers and chills. He had a CT of the abdomen/pelvis which demonstrated findings suspicious for osteomyelitis/discitis at L5-S1 with a prevertebral soft tissue lesion. Soft tissue lesion was
suspicious for possible paravertebral phlegmon or developing abscess, versus neoplasm.
Patient was found to be hyponatremic, hypokalemic. He also was found to have a left lower extremity DVT, for which she has been started on a heparin drip. Blood cultures from 12/07 did demonstrate Staph aureus. WADE WADE was negative for
vegetations. He is being treated for sepsis. Neurosurgery asked to consult regarding lumbosacral findings. Patient seen and examined. He reports that his back pain actually has improved over the last several days. He denies any numbness,
tingling, weakness. Denies any urinary changes. He denies any recent major infections. Had a colonoscopy 1 year prior.
Review of Systems
-
A 10 point review of systems was performed, which includes constitutional, ENT, cardiovascular, respiratory, GI, , hematologic, endocrinologic, neurologic, musculoskeletal, and was negative, except for stated in HPI.
Medication and Allergies
Home Medications
Home Medications
Medication Instructions Recorded
cholecalciferol (vitamin D3) 25 25 mcg PO DAILY PRN supplement 12/08/23
mcg (1,000 unit) tablet (Vitamin
D3)
magnesium 250 mg tablet 250 mg PO DAILY PRN supplement 12/08/23
Allergies
Allergies
Allergy/AdvReac Type Severity Reaction Status Date / Time
No Known Allergies Allergy Unverified 12/08/23 16:04
Physical Exam
-
Exam:
Awake, alert, no apparent distress.
Cranial nerves II through XII are grossly intact.
Motor: 5/5 strength in upper extremities, lower extremities.
Sensation intact to light touch bilaterally in upper and lower extremities
Head is normocephalic atraumatic.
Neck supple
Breathing nonlabored
Abdomen is soft
Regular rhythm, pulses palpable
Extremities are warm, without any edema.
Exams:� CT Abd/pel Without Iv Or Oral
PROCEDURE: CT Abdomen and Pelvis without IV Contrast
CLINICAL INDICATION: Back pain. Fever.
TECHNIQUE: A CT examination of the abdomen and pelvis was performed without intravenous contrast. Oral contrast was not administered. Coronal and sagittal reformatted images were obtained. Automatic exposure control radiation dose reduction
technology was utilized.
COMPARISON: None.
FINDINGS:
CHEST: The lung bases are clear.
ABDOMEN:
The unenhanced liver, gallbladder, bile ducts, pancreas, spleen, bilateral adrenal glands, and kidneys are unremarkable. No hydronephrosis or nephrolithiasis.
The abdominal aorta is normal in caliber.
Normal appendix. Colonic diverticulosis, without evidence for acute diverticulitis. No extraluminal free air or ascites.
PELVIS: The urinary bladder and prostate gland are unremarkable. Small fat-containing left inguinal hernia.
SKELETON: Osseous destructive changes at the L5-S1 level involving the inferior endplate of L5 and the superior endplate of S1, highly suspicious for discitis-osteomyelitis. Prevertebral soft tissue anterior to the L5-S1 level measuring
approximately 4.6 x 8.0 x 6.0 cm. Mild adjacent inflammatory fat stranding in the pelvis.
IMPRESSION:
CT findings are highly suspicious for osteomyelitis-discitis at the L5-S1 level. Prevertebral soft tissue anterior to L5-S1 may represent paravertebral phlegmon or a developing abscess. Neoplastic soft tissue would be the primary differential
consideration.
Electronically signed by Marilin Plascencia 12/08/2023 5:59 PM
Assessment / Plan
-
48-year-old gentleman who presents with probable Staph aureus bacteremia, L5-S1 osseous destructive changes, with a prevertebral/presacral soft tissue lesion, suspicious for possible neoplasm versus abscess/phlegmon.
Recommend MRI of the lumbar spine with and without contrast when patient is stable and able to obtain scan, to better delineate lesion, and extent of pathology.
Patient is already been initiated on antibiotics. Interventional radiology has been consulted for aspiration/culture of the prevertebral/presacral area.
Given intact neurological examination, would hold off on any invasive neurosurgical/spinal intervention.
Will follow.
[2023-12-09 20:08] LABS: APTT 80.3 Sec (23.4-35.0)
[2023-12-09] MEDS: ROXICODONE 5 MG PO (20:41)
[2023-12-09] MEDS: MELATONIN 5 MG PO (21:01)
[2023-12-09] MEDS: BENADRYL 50 MG PO (21:01)
[2023-12-10] MEDS: STERILE WATER FOR INJECTION 10 ML IV (01:21)
[2023-12-10] MEDS: MAXIPIME 2000 MG IV (01:21)
[2023-12-10] MEDS: ROXICODONE 5 MG PO (01:21)
[2023-12-10 02:16] LABS: Hemoglobin 10.3 g/dL (13.0-18.0); Mean Corp Hgb Conc. 36.8 g/dL (33.0-37.0); Mean Corpuscular Hgb 31.5 pg (27.0-31.0); Mean Corpuscular Volume 85.6 fL (80.0-94.0); Mean Platelet Volume 8.4 fL (7.4-10.4); Platelet Count 388 10^3/uL (130-400); Red Blood Cell Count 3.27 10^6/uL (4.70-6.10); Red Cell Dist. Width 12.7 % (11.5-14.5); White Blood Cell Count 19.7 10^3/uL (4.8-10.8)
[2023-12-10 02:29] LABS: APTT 83.1 Sec (23.4-35.0)
[2023-12-10 02:39] LABS: Blood Urea Nitrogen 12 mg/dl (9-20); Calcium 7.9 mg/dl (8.4-10.2); Carbon Dioxide 27 mmol/L (22-30); Chloride 92 mmol/L (98-107); Estimated Creatinine Clearance > 125 ml/min; Glucose 132 mg/dl (70-99); Magnesium 1.8 mg/dl (1.6-2.3); Potassium 3.2 mmol/L (3.5-5.1); Sodium 124 mmol/L (135-145); eGFR > 60.00
[2023-12-10 03:37] VITALS: BP 131/81
[2023-12-10] MEDS: VANCOCIN 300 MG IV ×2 (05:43→17:42)
[2023-12-10] MEDS: VANCOCIN 300 ML IV ×2 (05:43→17:42)
[2023-12-10] MEDS: HEPARIN 25000 UNITS/250 ML IV ×2 (05:54→18:00)
[2023-12-10 06:18] LABS: APTT 73.6 Sec (23.4-35.0)
[2023-12-10 07:37] VITALS: BP 145/79
--- NOTE | 2023-12-10 08:22 | PHA.VAN.FU ---
Vancomycin Assessment / Plan
- Assessment
Renal Function: Stable
WBC's are: Trending Up
In the past 24 hrs, patient has been: Febrile (Tmax 102.5F - 12/08 19:50)
Concomitant Antimicrobials: cefepime
- Dosing Plan
Continue: Vanc 1500mg Q12H
- Monitoring Plan
No level(s) ordered at this time: consider levels following PM dose tomorrow to ensure at steady state
- Follow Up
Pharmacy will continue to follow.
Vancomycin Follow UP
- -
Patient Age: 48
Patient Sex: Male
Vancomycin Day #: 2
Indication: Bone And Joint
Requesting Provider: Dr. Muñoz / Deedee
Pertinent Antimicrobial Allergies:
NKDA
Height / Weight:
Height 5 ft 8 in
Actual Weight 93.242 kg
Pertinent Past Medical History: BMI ~31
- Vital Signs / Lab Results
Temp Pulse Resp BP Pulse Ox
99.4 F 83 20 131/81 96
12/10/23 03:37 12/10/23 03:37 12/10/23 03:37 12/10/23 03:37 12/10/23 03:37
Lab Results - Hematology
12/08/23 12/09/23 12/10/23
16:17 06:36 02:11
WBC 18.3 H 17.0 H 19.7 H
Lab Results - Chemistry
12/08/23 12/09/23 12/09/23
16:17 01:06 06:36
BUN 9 9 9
Creatinine 0.6 L 0.6 L 0.6 L
Estimated Creat Clear > 125 > 125
Albumin 3.5 2.9 L
12/10/23
02:11
BUN 12
Creatinine 0.6 L
Estimated Creat Clear > 125
Albumin
12/08/23 12/08/23 12/08/23
16:17 17:42 21:00
Lactic Acid 0.8 0.9 Cancelled
Microbiology Results
12/08/23 17:42 Blood Culture - Preliminary
Blood/Venous Positive culture in progress
Gram Stain - Preliminary
12/08/23 16:17 Blood Culture - Preliminary
Blood/Venous Staphylococcus aureus
Gram Stain - Final
12/08/23 17:42 Influenza Types A & B (TARIQ) - Final
Nasal Swab Negative for Influenza A & B, NAAT
Negative results must be combined with clinical observations
and patient history.
Nucleic Acid Amplification test (NAAT)performed on the
[employer] platform.
[2023-12-10 08:54] LABS: Glycohemoglobin (HgbA1c) 6.5 % (4.0-5.6)
[2023-12-10] MEDS: VISBIOME 2 CAP PO (09:05)
--- NOTE | 2023-12-10 09:11 | W.PN.HOSP.TC ---
Addendum entered and electronically signed by Oleg Simms MD 12/11/23 13:49:
Yes, Sepsis is related to/associated with/due to s. aureus.
Original Note:
Today's Communication/Plan
-
see bold
Assessment / Plan
Assessment / Plan
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
ago he had an episode of vomiting associated with passing out.� He denies any further dizziness or vomiting since then.� He denies any diarrhea and slightly constipated with last bowel movement 2 days ago.� Denies any abdominal pain. He developed
pain and cramping in his left lower extremity over the past 2 to 3 days.� He denies any history of blood clots.� He denies any recent surgeries, COVID infection, long trips.� Denies any family history of blood clots.� Denies any chest pain or
shortness of breath. Over the past week he has had pain in his lower back.� He denies any weakness of his lower extremities or numbness and tingling.� He has been having fevers and chills up to 100.4.� No history of drugs or IV drug use. Very rarely
drinks alcohol.� No smoking history. No family history. Patient is a chiropractor.
A/P:
#Sepsis (fever at home, leukocytosis )
#Acute osteomyelitis/discitis of L5-S1 with paravertebral phlegmon/abscess
#Persistent MSSA bacteremia
Appreciate ID input, continue ancef, follow-up on cultures
12/08 TTE negative for vegetations
Fever resolved, last fever 12/08
MRI L-spine reviewed, shows 2.8 cm AP by 2.6 cm transverse by 2.8 cm craniocaudal spinal abscess
12/07 and 12/08 blood cultures w/ MSSA
ID recommending neurosurgical intervention, neurosurgery on board
#Unprovoked left lower extremity DVT gastrocnemius veins
Heparin drip
#Syncopal episode likely due to hypokalemia/prolonged QTc/hyponatremia
#Prolonged QTc secondary to hypokalemia
#Hypomagnesemia
QTc normal today at 383, was 573 upon admission
Potassium improved at 3.2, continue to replete
Magnesium now normal 1.9
#Hyponatremia possibly due to poor p.o. intake
Likely due to excess ADH secretion in the setting of pain
Status post hypertonic saline
Sodium down at 124, was 128, was 123
Check TSH, a.m. cortisol, urine studies, serum osmolality
Consult nephrology for poss samsca, continue fluid restriction, trend sodium
#Glucose intolerance/borderline type 2 diabetes
Hemoglobin A1c 6.5, recommend low-carb diet, and weight loss upon discharge
# Hypertensive urgency
Likely due to pain
Blood pressure 141/85, improved from 177/102
Continue as needed hydralazine
#Insomnia
Started melatonin and Benadryl at bedtime
DVT prophylaxis�heparin drip
Full code
Total time spent to see the patient on the floor, examine the patient, review data and lab results, discuss treatment plan with patient, nursing staff around 52 minutes.
Physical Exam
General: Obese, no acute distress
HEENT: Normocephalic, Atraumatic, EOMI, MMM
Respiratory: Clear to Auscultation bilaterally
Cardiac: Normal S1/S2, Regular Rate and Rhythm
GI: Soft, Nontender, Nondistended, Normal Bowel Sounds
Extremities: No Clubbing, Cyanosis, or Edema
Neuro: Nonfocal/Grossly Intact
Psych: Calm, Cooperative
Derm: No Visible lesions
Anticipated Discharge: > 48 hours
Subjective/Interval History
-
Date of Service: December 10, 2023
Patient continues to have severe back pain. No fever. No nausea, no vomiting. No chest pain.
Objective Data
-
Labs:
Laboratory Results
12/10/23 12/10/23
02:11 05:53
WBC 19.7 H
Hgb 10.3 L
Hct 28.0 L
Plt Count 388
APTT 83.1 H 73.6 H
Sodium 124 L
Potassium 3.2 L
Chloride 92 L
Carbon Dioxide 27
BUN 12
Creatinine 0.6 L
Glucose 132 H
Calcium 7.9 L
Vital Signs:
Vital Signs
Temp Pulse Resp BP Pulse Ox
100.2 F 86 20 145/79 94
12/10/23 07:37 12/10/23 07:37 12/10/23 07:37 12/10/23 07:37 12/10/23 07:37
I&O
12/09/23 12/10/23 12/11/23
06:59 06:59 06:59
Intake Total 766 / 766 840 / 840
Output Total 560 / 560
Balance 206 / 206 840 / 840
[2023-12-10 10:13] LABS: Osmolality Serum 260 mOsm/kg (275-300)
[2023-12-10 10:45] LABS: TSH 5.03 uIU/ml (0.47-4.68)
[2023-12-10] MEDS: KCL 40 MEQ PO ×2 (10:58→15:40)
[2023-12-10 11:10] LABS: Cortisol, Random 16.3 ug/dl
[2023-12-10 11:35] VITALS: BP 141/85
[2023-12-10 11:48] LABS: Osmolality Urine 544 mOsm/kg (300-900)
[2023-12-10 12:09] LABS: Urine Sodium 71 mmol/L (30-90)
[2023-12-10] MEDS: MIRALAX 17 GRAMS PO ×2 (12:30→20:37)
--- NOTE | 2023-12-10 13:04 | W.CON.NEPH ---
Consultation
-
Date/Time Consultation Requested: 12/10/23
Date/Time Consultation Performed: 12/10/23
Requesting Provider: Bernarda Simms
Performing Provider: Liyah Bar
Reason for Consultation: hyponatremia
Medical History
-
Chief Complaint: hyponatremia
History of Present Illness:
Mr. Benoit is a 48YOM with no significan medical hsitory who presents to the hospital for a month of feeling unwell. He states that he started a keto diet a month ago and has lost about 15 lbs. A week ago, he had an episode of vomitting and then
passed out afterwards. He started drinking almost 180 oz of water daily after his episode of passing out. Denies dizziness, nausea, vomitting diarrhea since then. He denies abd pain. He endorses some cramping over his lower extremities over the past
few days, resolved after heparin initiation. Endorses significant back pain.
Nephrology is consulted in the setting of his hyponatremia. He was initially given HTS with improvement, today back down.
Past Medical History
Past Medical History: None
Past Surgical History: None
Social History
Tobacco: Non-Smoker
Alcohol: None
Drug: None
Employment: Employed
Family History
Family History: Not Pertinent
Allergies / Home Medications
Allergy/AdvReac Type Severity Reaction Status Date / Time
No Known Allergies Allergy Unverified 12/08/23 16:04
Medication Instructions Recorded Confirmed Type
cholecalciferol (vitamin D3) 25 25 mcg PO DAILY PRN supplement 12/08/23 12/08/23 History
mcg (1,000 unit) tablet (Vitamin
D3)
magnesium 250 mg tablet 250 mg PO DAILY PRN supplement 12/08/23 12/08/23 History
Review of Systems
-
History Source: Patient
All other systems: Negative unless noted
Constitutional: Weight Loss and Fatigue
Abdomen/GI: Abdominal Pain
Skin: No Symptoms
Neurological: Dizzy and Weakness
Physical Exam
Vital Signs
Vital Signs
Temp Pulse Resp BP Pulse Ox
99.8 F 85 16 141/85 93
12/10/23 11:35 12/10/23 11:35 12/10/23 11:35 12/10/23 11:35 12/10/23 11:35
Lab Results
WBC 19.7 10^3/uL (4.8-10.8) H 12/10/23 02:11
RBC 3.27 10^6/uL (4.70-6.10) L 12/10/23 02:11
Hgb 10.3 g/dL (13.0-18.0) L 12/10/23 02:11
Hct 28.0 % (39.0-52.0) L 12/10/23 02:11
Plt Count 388 10^3/uL (130-400) 12/10/23 02:11
Sodium 124 mmol/L (135-145) L 12/10/23 02:11
Potassium 3.2 mmol/L (3.5-5.1) L 12/10/23 02:11
Chloride 92 mmol/L (98-107) L 12/10/23 02:11
Carbon Dioxide 27 mmol/L (22-30) 12/10/23 02:11
BUN 12 mg/dl (9-20) 12/10/23 02:11
Creatinine 0.6 mg/dL (0.7-1.3) L 12/10/23 02:11
eGFR > 60.00 12/10/23 02:11
Glucose 132 mg/dl (70-99) H 12/10/23 02:11
Calcium 7.9 mg/dl (8.4-10.2) L 12/10/23 02:11
Phosphorus 3.0 mg/dl (2.5-4.5) 12/10/23 02:11
Albumin 2.9 g/dl (3.5-5.0) L 12/09/23 06:36
Physical Exam
General: AOx3
HEENT: PERRL, EOMI, Anicteric, Conjunctivae Clear, Ear/Nose Intact and Hearing Normal
Respiratory: Clear
Cardiac: S1/S2, Regular Rate/Rhythm and No Edema
Breast: N/A
Abdomen: Soft, Nontender and Other (distended)
Rectal: Deferred by Provider
Musculoskeletal: No Edema
Skin: No Rash, Warm and Dry
Neuro: Nonfocal/Grossly Intact
Psych: Mood/afflect pleasant, Insight/judgement good and Appropriate
Assessment/Plan
-
Assessment:
hyponatremia
DVT
osteomyelitis
staph aureus bacteremia
hypertensive urgency
insomnia
Plan:
Na 124, Uosm 199, Neli 16
likely multifactorial - SIADH + hypovolemia + polydipsia
will restart HTS at 25cc/hr
goal Na of 130+ by tomorrow AM
encouraged patient to FR 48oz while in hospital. can liberalize once Na improved
Data Reviewed
-
Radiology: Report Reviewed by me
MRI: Report Reviewed by me
Labs: Labs Reviewed by me, Discussed with Physician and Discussed with Patient
Old Records: Reviewed
[2023-12-10] MEDS: ROXICODONE 10 MG PO ×2 (13:40→21:03)
[2023-12-10] MEDS: SODIUM CHLORIDE 3% 250 IV (13:41)
--- NOTE | 2023-12-10 13:43 | W.PN.ID1 ---
Date of Service
Date of Service: December 10, 2023
Today's Communication
vanc and cefazolin
message left for vascular surgery - suspect this patient might benefit from transfer to a tertiary care center and would be happy to facilitate if needed
Assessment / Plan
L5-S1 Osteomyelitis/Discitis
2 large paraspinal abscesses likely due to s aureus
Persistent S aureus Bacteremia
- repeat blood cultures one set daily until persistently clear in two sets
- panellipse - possible tavia but no initial source of bacteremia
- echo - TTE: no vegetations
- MRI lumbar spine with two paraspinal abscesses including a large, anterior collection not approachable by neurosurgery, IR or gen surg at this institution (discussed with Dr Manning, Dr Porter and Dr Browne). Message left for vascular surgery to
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 I am concerned that both of these collections are larger than 2 cm in all three dimensions and I would recommend I&D for source control; I'm concerned that event long courses of IV antibiotics may
not be sufficient to prevent progression of abscesses of this size
- Xray of the L foot - no radiopaque foreign body
- continue vanc, switch cefepime to cefazolin pending sensitivities
- follow clinically
DM2
- new diagnosis
- management may improve outcomes of infection in the long run, would consider eventual trial of oral hypoglycemics
Chief Complaint
-: Bacteremia
Subjective / Review of Systems
ongoing fevers
bp stable
leukocytosis ongoing, thrombocytosis resolved
a1c 6.5
hyponatremia persists
there are paraspinal abscesses on the MRI - 5 x 5 x4 cm; second abscess 3x3x3 cm
12/08 echo: no vegetations
no changes in vision
Discussed frankly with patient, brought computer into the room and we reviewed the images together. He would like a disc for his family and I asked our community outreach specialist to bring him the record release form
Vital Signs / Physical Exam
Vital Signs
Vital Signs
Temp Pulse Resp BP Pulse Ox
99.8 F 85 16 141/85 93
12/10/23 11:35 12/10/23 11:35 12/10/23 11:35 12/10/23 11:35 12/10/23 11:35
Physical Exam
Constitutional: No Acute Distress
Cardiovascular: Regular Rate and S1/S2; Negative Murmur or Rub
Pulmonary: Clear and Symmetric; Negative Wheezes or Rales
Gastrointestinal: Soft, Non Tender, Non Distended and Normal Bowel Sounds
Skin: Warm and Dry; Negative Rash or Jaundice
Lines: PIV (nontender)
Objective Data
Lab Data
Lab Results
12/10/23 02:11
12/10/23 02:11
ESR 84 mm/hour (0-20) H 12/08/23 16:17
APTT 73.6 Sec (23.4-35.0) H 12/10/23 05:53
Estimated Creat Clear > 125 ml/min 12/10/23 02:11
Lactic Acid Cancelled 12/08/23 21:00
Total Bilirubin 0.8 mg/dl (0.2-1.3) 12/09/23 06:36
AST 27 U/L (17-59) 12/09/23 06:36
ALT 21 U/L (0-50) 12/09/23 06:36
Alkaline Phosphatase 89 U/L (38-126) 12/09/23 06:36
C-Reactive Protein 246.60 mg/L (0.0-10.00) H 12/08/23 16:17
Most recent labs reviewed.
Micro Results:
12/09/23 13:23 Blood Culture - Preliminary
Blood/Venous Positive culture in progress
Gram Stain - Preliminary
12/09/23 12:20 Blood Culture - Preliminary
Blood/Venous Positive culture in progress
Gram Stain - Preliminary
12/08/23 17:42 Blood Culture - Preliminary
Blood/Venous Staphylococcus aureus
Gram Stain - Final
12/08/23 16:17 Blood Culture - Preliminary
Blood/Venous Staphylococcus aureus
Gram Stain - Final
12/08/23 17:42 Influenza Types A & B (TARIQ) - Final
Nasal Swab Negative for Influenza A & B, NAAT
Negative results must be combined with clinical observations
and patient history.
Nucleic Acid Amplification test (NAAT)performed on the
[employer] platform.
[2023-12-10 15:10] VITALS: BP 148/89
[2023-12-10] MEDS: ANCEF 10 IV ×2 (15:10→21:05)
[2023-12-10] MEDS: TYLENOL 650 MG PO (15:37)
[2023-12-10 16:59] LABS: APTT 55.6 Sec (23.4-35.0)
[2023-12-10] MEDS: HEPARIN 7700 UNITS IV (17:32)
[2023-12-10 19:39] VITALS: BP 114/77
[2023-12-10] MEDS: BENADRYL 50 MG PO (21:03)
[2023-12-10] MEDS: MELATONIN 5 MG PO (21:03)
[2023-12-10 23:24] LABS: APTT 133.2 Sec (23.4-35.0)
[2023-12-10 23:31] VITALS: BP 117/75
[2023-12-11 03:34] VITALS: BP 129/82
[2023-12-11] MEDS: HEPARIN 25000 UNITS/250 ML IV ×2 (05:07→14:02)
[2023-12-11] MEDS: ANCEF 10 IV ×2 (05:11→14:26)
[2023-12-11] MEDS: VANCOCIN 300 ML IV (05:12)
[2023-12-11] MEDS: VANCOCIN 300 MG IV (05:12)
[2023-12-11] MEDS: TYLENOL 650 MG PO ×2 (05:20→15:17)
[2023-12-11] MEDS: MIRALAX 17 GRAMS PO (05:20)
[2023-12-11 07:24] LABS: Hematocrit 28.3 % (39.0-52.0); Hemoglobin 9.9 g/dL (13.0-18.0); Mean Corpuscular Hgb 31.1 pg (27.0-31.0); Mean Platelet Volume 8.7 fL (7.4-10.4); Platelet Count 442 10^3/uL (130-400); Red Blood Cell Count 3.18 10^6/uL (4.70-6.10); Red Cell Dist. Width 12.9 % (11.5-14.5); White Blood Cell Count 15.7 10^3/uL (4.8-10.8)
[2023-12-11 07:35] VITALS: BP 124/80
[2023-12-11 07:45] LABS: Blood Urea Nitrogen 14 mg/dl (9-20); Calcium 8.6 mg/dl (8.4-10.2); Carbon Dioxide 30 mmol/L (22-30); Chloride 93 mmol/L (98-107); Estimated Creatinine Clearance > 125 ml/min; Glucose 154 mg/dl (70-99); Potassium 3.5 mmol/L (3.5-5.1); Sodium 131 mmol/L (135-145); eGFR > 60.00
[2023-12-11 08:26] LABS: APTT 59.3 Sec (23.4-35.0)
--- NOTE | 2023-12-11 08:44 | W.PN.HOSP.TC ---
Addendum entered and electronically signed by Oleg Simms MD 12/11/23 13:49:
Yes, Sepsis is related to/associated with/due to s. aureus.
Original Note:
Today's Communication/Plan
-
Transfer to [facility] when bed available, accepting doctor is Dr. Wayne Cavazos
Assessment / Plan
Assessment / Plan
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
ago he had an episode of vomiting associated with passing out.� He denies any further dizziness or vomiting since then.� He denies any diarrhea and slightly constipated with last bowel movement 2 days ago.� Denies any abdominal pain. He developed
pain and cramping in his left lower extremity over the past 2 to 3 days.� He denies any history of blood clots.� He denies any recent surgeries, COVID infection, long trips.� Denies any family history of blood clots.� Denies any chest pain or
shortness of breath. Over the past week he has had pain in his lower back.� He denies any weakness of his lower extremities or numbness and tingling.� He has been having fevers and chills up to 100.4.� No history of drugs or IV drug use. Very rarely
drinks alcohol.� No smoking history. No family history. Patient is a chiropractor.
A/P:
#Sepsis (fever at home, leukocytosis )
#Acute osteomyelitis/discitis of L5-S1 with paravertebral phlegmon/abscess
#Persistent MSSA bacteremia
Appreciate ID input, continue vanc & ancef
12/08 TTE negative for vegetations
Continues to have fever, last fever 12/10, 100.4
MRI L-spine reviewed, shows 2.8 cm AP by 2.6 cm transverse by 2.8 cm craniocaudal spinal abscess
12/07 and 3/13 blood cultures w/ MSSA
ID and neurosurgery recommends transfer to tertiary care center for surgical intervention
Transfer to [facility] when bed available, accepting doctor is Dr. Wayne Cavazos
Paperwork completed
#Unprovoked left lower extremity DVT gastrocnemius veins
Heparin drip
#Syncopal episode likely due to hypokalemia/prolonged QTc/hyponatremia
#Prolonged QTc secondary to hypokalemia
#Hypomagnesemia
QTc normal today at 383, was 573 upon admission
Potassium improved at 3.5, continue to replete prn
Magnesium now normal 2.0
#Hyponatremia
#SIADH
Likely due to excess ADH secretion in the setting of pain
Sodium now 131 s/p hypertonic saline, was 124, was 128, was 123
Na 124, Uosm 199, Neli 16, am cortisol normal, TSH high at 5.03, check free T4
Appreciate nephrology input, suspect hyponatremia is secondary to SIADH + hypovolemia + polydipsia
Continue fluid restriction, monitor sodium, continue management as per nephrology
#Glucose intolerance/borderline type 2 diabetes
Hemoglobin A1c 6.5, recommend low-carb diet, and weight loss upon discharge
# Hypertensive urgency
Likely due to pain
Blood pressure 137/86, improved from 177/102
Continue as needed hydralazine
#Constipation
Continue MiraLAX twice a day, add lactulose and Senokot�as twice a day
#Insomnia
Continue melatonin and Benadryl at bedtime
DVT prophylaxis�heparin drip
Full code
Total time spent to see the patient on the floor, examine the patient, review data and lab results, discuss treatment plan with patient, nursing staff around 51 minutes.
Physical Exam
General: Obese, no acute distress
HEENT: Normocephalic, Atraumatic, EOMI, MMM
Respiratory: Clear to Auscultation bilaterally
Cardiac: Normal S1/S2, Regular Rate and Rhythm
GI: Soft, Nontender, Nondistended, Normal Bowel Sounds
Extremities: No Clubbing, Cyanosis, or Edema
Neuro: Nonfocal/Grossly Intact
Psych: Calm, Cooperative
Derm: No Visible lesions
Anticipated Discharge: Today
Subjective/Interval History
-
Date of Service: December 11, 2023
Patient reports that his back pain is controlled with his pain meds. Still with intermittent fever. No chest pain, no shortness of breath. He is still constipated, no bowel movement yet.
Objective Data
-
Labs:
Laboratory Results
12/10/23 12/11/23
23:05 07:06
WBC 15.7 H
Hgb 9.9 L
Hct 28.3 L
Plt Count 442 H
APTT 133.2 H 59.3 H
Sodium 131 L
Potassium 3.5
Chloride 93 L
Carbon Dioxide 30
BUN 14
Creatinine 0.6 L
Glucose 154 H
Calcium 8.6
Vital Signs:
Vital Signs
Temp Pulse Resp BP Pulse Ox
98.6 F 78 16 124/80 95
12/11/23 07:35 12/11/23 07:35 12/11/23 07:35 12/11/23 07:35 12/11/23 07:35
I&O
12/10/23 12/11/23 12/12/23
06:59 06:59 06:59
Intake Total 840 / 840 1172 / 1172
Balance 840 / 840 1172 / 1172
[2023-12-11] MEDS: HEPARIN 7700 UNITS IV (08:58)
[2023-12-11] MEDS: VISBIOME 2 CAP PO (09:08)
--- NOTE | 2023-12-11 10:30 | PN.CDI ---
CDI
- -
CDI:
Physician Documentation Request
Admit Date: 12/08/23 19:39
Dear Doctor Do,
Patient admitted for sepsis, acute osteomyelitis/discitis
Blood cultures have grown S. Aureus - methicillin sensitive
Please clarify if a relationship exist between these conditions:
Yes, Sepsis is related to/associated with/due to s. aureus.
No, Sepsis is not related to/associated with/due to s aureus
Unable to determine
Use of terms such as suspected, likely, concern for, or probable (associated with a specific diagnosis that is being evaluated, monitored, or treated as if it exists) are acceptable and can be coded in the inpatient setting, when documented at the
time of discharge.
Thank you,
Daphne Perez RN, BSN
CDI Specialist
tiger text
Please use your independent medical judgment in providing your response.
[2023-12-11] MEDS: SENOKOT-S 2 TABLET PO (10:45)
[2023-12-11] MEDS: DUPHALAC/CHRONULAC 20 GRAMS PO (10:45)
[2023-12-11 11:06] VITALS: BP 137/86
--- NOTE | 2023-12-11 13:45 | W.DCSUMMARY ---
Discharge Summary
Discharge Data
Date of Admission: 12/08/23
Date of Discharge: 12/11/23
-
Pending Results: No
Hospital Course
Discharge diagnoses:
Sepsis
Acute osteomyelitis/discitis of the lumbar 5�sacral S1 with paravertebral abscess
Persistent methicillin sensitive Staph aureus bacteremia
Unprovoked left lower extremity deep vein thrombosis
Hyponatremia
Syndrome of inappropriate antidiuretic hormone secretion
Syncope
Prolonged QTc, now resolved
Profound hypokalemia
Hypomagnesemia
Hypertensive urgency
Constipation
Insomnia
Consults: ID, neurosurgery, nephrology
MRI L Spine:
MR findings compatible with discitis and osteomyelitis involving L5-S1.
There is a paraspinal abscess collection with adjacent enhancement anteriorly centrally, also extending slightly inferiorly anterior the upper sacrum.
There is a second smaller paraspinal abscess collection toward the left, in the left anterolateral paraspinal soft tissues.
These paraspinal abscess collections result in compression of the left common iliac and superior aspect of the left external iliac vein, and may contribute to left lower extremity swelling.
No other focal area suspicious for discitis or osteomyelitis.
Hospital course:
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
had an episode of vomiting associated with passing out.� He denies any further dizziness or vomiting since then.�
He developed pain and cramping in his left lower extremity over the past 2 to 3 days.� He denies any history of blood clots.� He denies any recent surgeries, COVID infection, long trips.� Denies any family history of blood clots.� Denies any chest
pain or shortness of breath.
Over the past week he has had pain in his lower back.� He denies any weakness of his lower extremities or numbness and tingling.� He has been having fevers and chills up to 100.4.� No history of drugs or IV drug use.
Patient was found to have acute left lower extremity DVT, and was treated with an IV heparin drip.
He was also found to have acute osteomyelitis/discitis of the L5-S1 with paravertebral abscess. Patient was seen in conjunction with ID, and neurosurgery. He initially received vancomycin and cefepime. Blood cultures grew out MSSA. ID
transitioned him to vancomycin and Ancef. Repeat blood cultures were persistently positive for MSSA. TTE was negative for vegetations.
MRI of the L-spine confirms discitis and osteomyelitis at the L5-S1. There is an abscess collection measuring 2.8 cm AP by 2.6 cm transverse by 2.8 cm craniocaudal. Due to the location, IR was not able to aspirate the abscess. Neurosurgery and ID
recommend transfer to a tertiary care center for neurosurgical intervention.
Patient also had syncope prior to admission, due to dehydration from nausea and vomiting. He had severe hypokalemia, hypomagnesemia, causing QTc prolongation. His potassium and magnesium were repleted, and his QTc normalized.
Patient also had severe hyponatremia, due to SIADH, hypovolemia, and polydipsia. He was treated with hypertonic saline and fluid restriction. His sodium improved to 131. Nephrology recommends continue fluid restriction.
Patient was found to have glucose intolerance/borderline type 2 diabetes. His hemoglobin A1c was 6.5. It is recommended that he adhere to a low carbohydrate diet, and lose weight after he overcomes this health challenge.
Patient had hypertensive urgency upon admission. His blood pressure was 177/102. Suspect this is due to pain. His pain was treated, his blood pressure improved to 137/86.
He had constipation, and was started on aggressive bowel regimen.
He had insomnia, and was started on melatonin and Benadryl at bedtime.
Patient has been accepted by [facility], by Dr. Wayne Cavazos for neurosurgical intervention for his spinal abscess. He is transferred there in stable condition.
Disposition: Transfer to the [facility]
Discharge planning: Required 51 minutes
Discharge Plan
-
Patient Disposition: Acute Care Hospital
Discharge Orders:
Discharge Patient (As Directed); Ordered 12/11/23
Ordered By: Oleg Simms
--- NOTE | 2023-12-11 13:57 | PTCARENOTE ---
Transfer center for [facility] called for report. Spoke to Venecia [phone], no bed avail, she will call when one opens up.
--- NOTE | 2023-12-11 14:00 | PN.NS ---
Subjective
-
Patient seen and examined. On his way to the bathroom. is at bedside. Offers no new complaints
Physical Exam
-
Exam:
Exam:
Awake, alert, no apparent distress.
Cranial nerves II through XII are grossly intact.
Motor: 5/5 strength in upper extremities, lower extremities.
Sensation intact to light touch bilaterally in upper and lower extremities
Head is normocephalic atraumatic.
Neck supple
Breathing nonlabored
Abdomen is soft
Regular rhythm, pulses palpable
Extremities are warm, without any edema.
MRI of the lumbar spine with without contrast performed on 12/10/2023 reviewed. There is evidence of STIR signal/T2 signal hyperintensity at L5-S1 within the disc base, extending into the vertebral bodies of L5 and S1, highly suspicious for
osteodiscitis at this level. Additionally, there is a lobulated peripherally enhancing lesion within the anterior/presacral paraspinal soft tissues compatible with a presacral abscess, with dimensions of 5.3 cm x 5.6 cm x 4.1 cm. There is also
additional multicystic collections within the left anterior lateral paraspinal soft tissues measuring approximately 2.5 cm this resulted in compression of the left iliac vein and left common iliac vein. No obvious evidence of epidural abscess is
seen.
Assessment / Plan
-
48-year-old gentleman who presents with Staph aureus bacteremia, L5-S1 osseous destructive changes, with a prevertebral/presacral soft tissue lesion, consistent with presacral abscess/phlegmon.
MRI of the lumbar spine confirms no obvious evidence of epidural, intracanalicular extension, or any obvious thecal sac/cauda equina compression, as is consistent with his intact neurological examination. The majority of this loculated
lesion/abscess appears to be presacral in nature, and in close vicinity to the iliac vessels.
ID recommends I&D of this collection, as it is felt that patient's bacteremia will not respond to IV antibiotics alone.
Given this, recommend anterior approach either via surgical (general surgery/vascular) means, or minimally invasive/interventional radiologic means.
Case was discussed with infectious disease and hospitalist.
Unfortunately, interventional radiology, general surgery, vascular surgery do not feel comfortable accessing this also. Therefore, transfer is recommended.
I was informed that [facility] has accepted. Briefly, clinical case scenario was also communicated to Dr. Hollis, neurosurgery at [place].
Today's Communication
-
Discussed with hospital medicine, infectious disease, patient, patient's , and [place] neurosurgery.
[2023-12-11] MEDS: KCL 40 MEQ PO (14:07)
[2023-12-11] MEDS: ROXICODONE 5 MG PO (14:31)
--- NOTE | 2023-12-11 15:16 | PTCARENOTE ---
pt temp 101.5, will give tylenol and reassess
[2023-12-11 15:20] LABS: APTT 133.4 Sec (23.4-35.0)
[2023-12-11 15:23] LABS: Free T4 1.83 ng/dl (0.78-2.19)
--- NOTE | 2023-12-11 15:43 | W.PN.NEPH.PH ---
Today's Communication / Plan
-
cont FR, recheck abs
Assessment/Plan
-
Assessment:
hyponatremia
DVT
osteomyelitis
staph aureus bacteremia
hypertensive urgency
insomnia
Plan:
Na improved to 131 post 35 saline
recheck later today , TSH and cortisol were ok
initial Uosm 199, Neli 16, repeat was 544 and U na 71
likely multifactorial - SIADH + hypovolemia + polydipsia
encouraged patient to FR 48oz for now
replace k prn
plan transfer to [facility] for paraspinal abscess
-
-
Date of Service: December 11, 2023
CC / HPI / ROS
-
Chief Complaint:
Hyponatremia
History of Present Illness:
sodium improving to 131 s/p 3% saline
BP stable
low grade fever
WBC improving
Review of Systems:
feels well
no cp or sob
no n/v
Labs
-
Labs:
WBC 15.7 10^3/uL (4.8-10.8) H 12/11/23 07:06
RBC 3.18 10^6/uL (4.70-6.10) L 12/11/23 07:06
Hgb 9.9 g/dL (13.0-18.0) L 12/11/23 07:06
Hct 28.3 % (39.0-52.0) L 12/11/23 07:06
Plt Count 442 10^3/uL (130-400) H 12/11/23 07:06
Sodium 131 mmol/L (135-145) L 12/11/23 07:06
Potassium 3.5 mmol/L (3.5-5.1) 12/11/23 07:06
Chloride 93 mmol/L (98-107) L 12/11/23 07:06
Carbon Dioxide 30 mmol/L (22-30) 12/11/23 07:06
BUN 14 mg/dl (9-20) 12/11/23 07:06
Creatinine 0.6 mg/dL (0.7-1.3) L 12/11/23 07:06
eGFR > 60.00 12/11/23 07:06
Glucose 154 mg/dl (70-99) H 12/11/23 07:06
Calcium 8.6 mg/dl (8.4-10.2) 12/11/23 07:06
Phosphorus 3.0 mg/dl (2.5-4.5) 12/10/23 02:11
Albumin 2.9 g/dl (3.5-5.0) L 12/09/23 06:36
Physical Exam
-
Vital Signs:
Vital Signs
Temp Pulse Resp BP Pulse Ox
99.0 F 80 14 137/86 94
12/11/23 11:06 12/11/23 11:06 12/11/23 11:06 12/11/23 11:06 12/11/23 11:06
Cardiovascular:: Regular rate and rhythm
Respiratory:: Bilateral: CTA
Lung Excursion:: Normal
Abdomen:: Nontender and Soft
Extremity Edema:: +1: Left: and None: Right:
Emery Catheter: No
[2023-12-11 15:48] VITALS: BP 130/84
--- NOTE | 2023-12-11 16:24 | PTCARENOTE ---
Rcvd call from Anastasia in the [facility] with an available bed in the [facility] rm 141-1.
[2023-12-11 16:32] LABS: Sodium 130 mmol/L (135-145)
--- NOTE | 2023-12-11 16:37 | PHA.VAN.FU ---
Vancomycin Assessment / Plan
- Assessment
Renal Function: Stable
WBC's are: Trending Down
Concomitant Antimicrobials: cefazolin
- Dosing Plan
Continue: Vanc 1500mg Q12H
- Monitoring Plan
No level(s) ordered at this time: consider levels in next few days
- Follow Up
Pharmacy will continue to follow.
Vancomycin Follow UP
- -
Patient Age: 48
Patient Sex: Male
Vancomycin Day #: 3
Indication: [facility]
Requesting Provider: Dr. Muñoz / [place]
Pertinent Antimicrobial Allergies:
NKDA
Height / Weight:
Height 5 ft 8 in
Actual Weight 93.242 kg
Pertinent Past Medical History: BMI ~31
- Vital Signs / Lab Results
Temp Pulse Resp BP Pulse Ox
99.3 F 85 16 130/84 93
12/11/23 16:15 12/11/23 15:48 12/11/23 15:48 12/11/23 15:48 12/11/23 15:48
Lab Results - Hematology
12/09/23 12/10/23 12/11/23
06:36 02:11 07:06
WBC 17.0 H 19.7 H 15.7 H
Lab Results - Chemistry
12/08/23 12/09/23 12/09/23
16:17 01:06 06:36
BUN 9 9 9
Creatinine 0.6 L 0.6 L 0.6 L
Estimated Creat Clear > 125 > 125
Albumin 3.5 2.9 L
12/10/23 12/11/23
02:11 07:06
BUN 12 14
Creatinine 0.6 L 0.6 L
Estimated Creat Clear > 125 > 125
Albumin
12/08/23 12/08/23 12/08/23
16:17 17:42 21:00
Lactic Acid 0.8 0.9 Cancelled
Microbiology Results
12/09/23 12:20 Blood Culture - Preliminary
Blood/Venous S aureus-Methicillin Sensitive
Gram Stain - Preliminary
12/09/23 13:23 Blood Culture - Preliminary
Blood/Venous S aureus-Methicillin Sensitive
Gram Stain - Preliminary
12/08/23 17:42 Blood Culture - Final
Blood/Venous S aureus-Methicillin Sensitive
Gram Stain - Final
12/08/23 16:17 Blood Culture - Final
Blood/Venous S aureus-Methicillin Sensitive
Gram Stain - Final
--- NOTE | 2023-12-11 16:57 | PTCARENOTE ---
Pt temp rechecked and is 99.3
--- NOTE | 2023-12-11 17:17 | PTCARENOTE ---
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
--- NOTE | 2023-12-11 17:34 | W.PN.ID1 ---
Date of Service
Date of Service: December 11, 2023
Today's Communication
- continue vanc and cefazolin at this time, in my opinion, would be best to continue vancomycin until bacteremia clears x48 hours
agree with transfer which is pending
- appreciate Dr Manning (neurosurgery) assistance
Assessment / Plan
L5-S1 Osteomyelitis/Discitis
2 large paraspinal abscesses likely due to s aureus
Persistent S aureus Bacteremia
- repeat blood cultures one set daily until persistently clear in two sets
- panellipse - possible tavia but no initial source of bacteremia
- echo - TTE: no vegetations
- MRI lumbar spine with two paraspinal abscesses including a large, anterior collection not approachable by neurosurgery, IR or gen surg at this institution (discussed with Dr Manning, Dr Porter, Dr Browne and Dr Steinberg all on 12/19). I am concerned
that both of these collections are larger than 2 cm in all three dimensions and I would recommend I&D for source control; I'm concerned that even long courses of IV antibiotics may not be sufficient to prevent progression of abscesses of this size.
Agree with transfer which is pending.
- appreciate Dr Manning (neurosurgery) assistance
- continue vanc and cefazolin at this time, in my opinion, would be best to continue vancomycin until bacteremia clears x48 hours
- follow clinically
DM2
- new diagnosis
- management may improve outcomes of infection in the long run, would consider eventual trial of oral hypoglycemics
Chief Complaint
-: Bacteremia
Subjective / Review of Systems
fevers ongoing
bp stable
no changes in vision, no change in back pain, no new weakness in the extremities
blood cultures now no growth at 24 hrs in 1 set
isolate MSSA
tolerating current therapies
Vital Signs / Physical Exam
Vital Signs
Vital Signs
Temp Pulse Resp BP Pulse Ox
99.3 F 85 16 130/84 93
12/11/23 16:15 12/11/23 15:48 12/11/23 15:48 12/11/23 15:48 12/11/23 15:48
Physical Exam
Constitutional: No Acute Distress
Cardiovascular: Regular Rate and S1/S2; Negative Murmur or Rub
Pulmonary: Clear and Symmetric; Negative Wheezes or Rales
Gastrointestinal: Soft, Non Tender, Non Distended and Normal Bowel Sounds
Skin: Warm and Dry; Negative Rash or Jaundice
Lines: PIV (nontender)
Objective Data
Lab Data
Lab Results
12/11/23 07:06
12/11/23 16:06
ESR 84 mm/hour (0-20) H 12/08/23 16:17
APTT 133.4 Sec (23.4-35.0) H 12/11/23 15:01
Estimated Creat Clear > 125 ml/min 12/11/23 07:06
Lactic Acid Cancelled 12/08/23 21:00
Total Bilirubin 0.8 mg/dl (0.2-1.3) 12/09/23 06:36
AST 27 U/L (17-59) 12/09/23 06:36
ALT 21 U/L (0-50) 12/09/23 06:36
Alkaline Phosphatase 89 U/L (38-126) 12/09/23 06:36
C-Reactive Protein 246.60 mg/L (0.0-10.00) H 12/08/23 16:17
Most recent labs reviewed.
Micro Results:
12/10/23 16:36 Blood Culture - Preliminary
Blood/Venous No Growth in 24 hours- Final report to follow
12/09/23 12:20 Blood Culture - Preliminary
Blood/Venous S aureus-Methicillin Sensitive
Gram Stain - Preliminary
12/09/23 13:23 Blood Culture - Preliminary
Blood/Venous S aureus-Methicillin Sensitive
Gram Stain - Preliminary
12/08/23 17:42 Blood Culture - Final
Blood/Venous S aureus-Methicillin Sensitive
Gram Stain - Final
12/08/23 16:17 Blood Culture - Final
Blood/Venous S aureus-Methicillin Sensitive
Gram Stain - Final
12/11/23 07:06 Blood Culture - Pending
Blood/Venous
12/08/23 17:42 Influenza Types A & B (TARIQ) - Final
Nasal Swab Negative for Influenza A & B, NAAT
Negative results must be combined with clinical observations
and patient history.
Nucleic Acid Amplification test (NAAT)performed on the
[employer] platform.
Care Review
Plan reviewed with: Physician (Dr Simms - dari)
--- NOTE | 2023-12-11 17:55 | CM ---
spoke with nicolette at [facility] and gave her [facility] insurance info.patient is now emergently trsnsferred to [facility].floor nurse gave report.transport scheduled for 6pm.no va auth required or obtained.dr kaley jefferson is admitting dr at [place]
[facility].
== END 2023-12-11 18:44 | disposition short-term general hospital (02) | DRG 872 ==
LOC: 4 EAST ACU 19:39
PROVIDERS: Emergency Medicine; Internal Medicine; ADMITTING PHYSICIAN Hospitalist; ATTENDING PHYSICIAN Family Medicine; CONSULT PHYSICIAN Neurological Surgery; CONSULT PHYSICIAN Student in an Organized Health Care Education/Training Program; EMERGENCY PHYSICIAN Emergency Medicine; FAMILY PHYSICIAN Internal Medicine
DX: A41.9 Sepsis, unspecified organism (principal); M46.26 Osteomyelitis of vertebra, lumbar region; E22.2 Syndrome of inappropriate secretion of antidiuretic hormone; M46.27 Osteomyelitis of vertebra, lumbosacral region; E87.6 Hypokalemia; E83.42 Hypomagnesemia; B96.89 Other specified bacterial agents as the cause of diseases classified elsewhere; M46.49 Discitis, unspecified, multiple sites in spine; I16.0 Hypertensive urgency; K57.30 Diverticulosis of large intestine without perforation or abscess without bleeding; B95.61 Methicillin susceptible Staphylococcus aureus infection as the cause of diseases classified elsewhere; E86.1 Hypovolemia; G47.00 Insomnia, unspecified; E11.8 Type 2 diabetes mellitus with unspecified complications; Z11.52 Encounter for screening for COVID-19
CPT/HCPCS: 70355; 70450; 71046; 72158; 73630; 74176; 80048; 80053; 81003; 81015; 82533; 83036; 83605; 83735; 83930; 83935; 84100; 84295; 84300; 84439; 84443; 85025; 85027; 85652; 85730; 86140; 87040; 87150; 87186; 87205; 87502; 87811; 93005; 93306; 93971; 96374; 99285